=== PATIENT | female | born 1960 | race Caucasian/White ===

== ENCOUNTER 2017-01-17 10:53 | Inpatient (IN) | payer OTHER ==
[~2017-01-17] VITALS: Ht 162.6 cm; Wt 113.6 kg
[~2017-01-17 10:53] MED LIST: GABA300C5 PO; HYDR-3516 PO
[2017-01-17] MEDS ORDERED: METOPROLOL TARTRATE 25 MG TAB PO PRN (11:45)
[2017-01-17] MEDS ORDERED: LACTATED RINGER'S 1000 ML IV PRN (11:45)
[2017-01-17] MEDS ORDERED: CHLORHEXIDINE GLUCONATE 2 % 1 PACK (2 CLOTHS) TOPICAL PRN (11:45)
[2017-01-17] MEDS ORDERED: POVIDONE IODINE 5% (ANTISEPSIS KIT) 4 APPLICATIONS EACH NARE PRN (11:45)
[2017-01-17] MEDS ORDERED: LACTATED RINGER'S 1000 ML INJ 1,000 ML IV SCH (11:45)
[2017-01-17] MEDS ORDERED: SODIUM CHLORID 0.9% 500 ML IV PRN (11:45)
[2017-01-17 12:16] LABS: BLOOD, URINE NEG (NEG); GLUCOSE,URINE NEG (NEG); KETONE, URINE NEG (NEG); NITRITE,URINE NEG (NEG); URINE COLOR LIGHT-YELLOW (YELLW/STRAW)
[2017-01-17 12:17] LABS: COMMENT (UR) CATH-CULT NOT IND; CULTURE IF INDICATED CATH CULTURE NOT IND
[2017-01-17] MEDS ORDERED: GELFOAM SIZE 100 ONE (12:33)
[2017-01-17] MEDS ORDERED: LIDOCAINE 1%/EPINEPHrine 1:100,000 SOLN 50 ML VIAL ONE (12:33)
[2017-01-17] MEDS ORDERED: THROMBIN (TOPICAL) 5,000 UNIT VIAL ONE (12:33)
[2017-01-17] MEDS ORDERED: GENTAMICIN SULFATE 80 MG/2 ML VIAL ONE (12:34)
[2017-01-17] MEDS: ceFAZolin 1,000 MG/NS 100 ML IV SCH ×4 (16:10→17:35)
--- NOTE | 2017-01-17 16:30 | RADRPT ---
EXAM DATE/TIME: 01/17/2017 14:38 [facility] COMPARISON: No previous studies available for comparison. INDICATIONS : Radiculopathy RADIATION DOSE: 35.78 CTDIvol (mGy) ; Combined studies - Thoracic Spine/Lumbar Spine MEDICAL HISTORY : Hypertension. SURGICAL HISTORY : lumbar ENCOUNTER: Initial ACUITY: 1 day PAIN SCALE: 5/10 LOCATION: low back pain TECHNIQUE: Volumetric scanning of the thoracic spine was performed. Multiplanar reconstructions in the sagittal , coronal and oblique axial planes were performed. Using automated exposure control and adjustment o f the mA and/or kV according to patient size, radiation dose was kept as low as reasonably achievable to obtain optimal diagnostic quality images. DICOM format image data is available electronically f or review and comparison. FINDINGS: There are 12 rib-bearing vertebral bodies. The vertebral bodies of the thoracic spine are in normal a lignment without evidence of subluxation. Mild anterior wedging of the T11 superior endplate anteriorly and to a lesser ET 10. No cortical or t rabecular irregularity to suggest acute fractures. There is diffuse mild disc space narrowing with an terior osteophytes. No posterior osteophytes. T1-T2: Normal. T2-T3: The thecal sac has a normal diameter. No evidence of disc bulge or protrusion. T3-T4: The thecal sac has a normal diameter. No evidence of disc bulge or protrusion. T4-T5: The thecal sac has a normal diameter. No evidence of disc bulge or protrusion. T5-T6: The thecal sac has a normal diameter. No evidence of disc bulge or protrusion. T6-T7: The thecal sac has a normal diameter. No evidence of disc bulge or protrusion. T7-T8: The thecal sac has a normal diameter. No evidence of disc bulge or protrusion. T8-T9: The thecal sac has a normal diameter. No evidence of disc bulge or protrusion. T9-T10: The thecal sac has a normal diameter. No evidence of disc bulge or protrusion. T10-T11: The thecal sac has a normal diameter. No evidence of disc bulge or protrusion. T11-T12: The thecal sac has a normal diameter. No evidence of disc bulge or protrusion. T12-L1: The thecal sac has a normal diameter. No evidence of disc bulge or protrusion. CONCLUSION: 1. 12 rib-bearing thoracic vertebral bodies. 2. Diffuse disc space narrowing with anterior osteophyte production. Central canal is patent througho ut Juan Herrera Jr., MD on January 17, 2017 at 16:23 Board Certified Radiologist. This report was verified electronically.
--- NOTE | 2017-01-17 16:35 | RADRPT ---
EXAM DATE/TIME: 01/17/2017 14:38 [facility] COMPARISON: CT THORACIC SPINE W/O CONTRAST, January 17, 2017, 14:38. INDICATIONS : Radiculopahy RADIATION DOSE: 35.92 CTDIvol (mGy) ; Combined studies - Thoracic Spine/Lumbar Spine MEDICAL HISTORY : Hypertension. SURGICAL HISTORY : lumbar ENCOUNTER: Initial ACUITY: 1 day PAIN SCALE: 5/10 LOCATION: low back pain TECHNIQUE: Volumetric scanning of the lumbar spine was performed. Multiplanar reconstructions in the sagittal, coronal and oblique axial planes were performed. Using automated exposure control and adjustment of the mA and/or kV according to patient size, radiation dose was kept as low as reasonably achievable t o obtain optimal diagnostic quality images. DICOM format image data is available electronically for review and comparison. FINDINGS: VERTEBRAE: Please note, there appears to be sacralization of the L5 vertebral body as the entire thoracic spine is also included and shows 12 thoracic type rib vertebral bodies. There are 4 non-rib lumbar-type akash tebral bodies with probable complete sacralization of L5. Numbering reflects this configuration. ALIGNMENT: Dextroscoliosis of the lumbar spine. T12-L1: The thecal sac has a normal diameter. No evidence of disc bulge or protrusion. The neural foramina are patent bilaterally. L1-L2: The thecal sac has a normal diameter. No evidence of disc bulge or protrusion. The neural foramina are patent bilaterally. L2-L3: The thecal sac has a normal diameter. No evidence of disc bulge or protrusion. The neural foramina are patent bilaterally. L3-L4: The thecal sac has a normal diameter. No evidence of disc bulge or protrusion. The neural foramina are patent bilaterally. L4-L5: Facet hypertrophy rightward narrows the right neural foramina and probably compromises the right L4 n erve root. Minimal central spinal stenosis. Some encroachment on the left neural foramina bilaterally the left foramina is adequate. Please note, on the axial images, the configuration is more consisten t with the lumbosacral junction characteristic of complete sacralization of the L5 vertebrae. L5-S1: The thecal sac has a normal diameter. No evidence of disc bulge or protrusion. The neural foramina are patent bilaterally. CONCLUSION: 1. 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 Numb ering protocol reflects this configuration. 2. Dextroscoliosis of the lumbar spine with associated mild degenerative disc disease. 3. Facet hypertrophy rightward at L4-5 no right neural foramina minimal certainly compromises the rig ht L4 nerve root. Minimal encroachment on the left neural foramina and spinal canal at the same level but I do not believe there is central nerve root compromise. Left L4 nerve root appears to escapes c ompression as well. 4. Spinal canal and neural foramina are adequate at all remaining levels. Aba Dahl MD on January 17, 2017 at 16:24 Board Certified Radiologist. This report was verified electronically.
[2017-01-17] MEDS ORDERED: PROPOFOL 500 MG/50 ML INJ 100 ML ONE ×2 (19:15→21:24)
[2017-01-17] MEDS ORDERED: fentaNYL CITRATE 1000 MCG/20 ML VIAL ONE (21:24)
[2017-01-17] MEDS ORDERED: 1/2 NS + KCL 20 MEQ INJ 1,000 ML IV SCH (22:28)
[2017-01-17] MEDS ORDERED: ONDANSETRON HCL 4 MG/2 ML VIAL IV PUSH PRN (22:30)
[2017-01-17] MEDS ORDERED: MORPHINE SULFATE 4 MG/ML INJ IV PUSH PRN (22:30)
[2017-01-17] MEDS ORDERED: HYDROmorphone HCL PF 1 MG/ML VIAL IV PUSH PRN ×2 (22:30)
[2017-01-17] MEDS ORDERED: ACETAMINOPHEN/HYDROcodone 325 MG/5 MG TAB PO PRN (22:30)
[2017-01-17] MEDS ORDERED: ACETAMINOPHEN/HYDROcodone 325 MG/10 MG TAB PO PRN (22:30)
[2017-01-17] MEDS ORDERED: NALOXONE HCL 0.4 MG/ML AMP IV PUSH PRN ×2 (22:30)
[2017-01-17] MEDS ORDERED: SODIUM CHLORIDE 0.9% FLUSH 5 ML FLUSH IVF PRN (22:30)
--- NOTE | 2017-01-17 22:34 | RADRPT ---
EXAM DATE/TIME: 01/17/2017 17:25 [facility] COMPARISON: CT LUMBAR SPINE W/O CONTRAST, January 17, 2017, 14:38. INDICATIONS : Radiculopathy. MEDICAL HISTORY : Hypertension. SURGICAL HISTORY : Lumbar spine ENCOUNTER: Initial ACUITY: 1 day PAIN SCORE: Non-responsive. LOCATION: Lumbar spine FINDINGS: A single lateral view of the lumbar spine was performed. There is a surgical probe are to coarse jazzy n last normal height disc space. Compared to the CT examination, this was labeled L4-L5. There appear s to be a small disc at what was labeled L5-S1. CONCLUSION: Surgical localization with a protracted course the last normal height disc space. Romie Mcgregor MD on January 17, 2017 at 22:31 Board Certified Radiologist. This report was verified electronically.
--- NOTE | 2017-01-17 22:35 | PD.OP ---
Operative Report Date of Surgery: Jan 17, 2017 Preoperative Diagnosis: (1) Lumbar radiculopathy (2) Lumbar canal stenosis (3) Herniated nucleus pulposus, lumbar 1. Right L4 and L5 radiculopathy 2. Right L4-5 transitional stenosis 3. Right L4-L5 transitional foraminal and extraforaminal disc displacement with foraminal stenosis. Postoperative Diagnosis: (1) Lumbar radiculopathy (2) Lumbar canal stenosis (3) Herniated nucleus pulposus, lumbar 1. Right L4 and L5 radiculopathy 2. Right L4-5 transitional stenosis 3. Right L4-L5 transitional foraminal and extraforaminal disc displacement with foraminal stenosis. Procedure: Procedure #1: Right L4-L5 transitional lateral approach for extraforaminal discectomy and L4 5 foraminotomy. Technique Procedure #2: Via separate incision. Right L4 5 transitional decompressive semi-laminectomy, medial facetectomy- microtechnique Anesthesia: Gen. Surgeon: Dl Gonzalez Pastry Finisher(s): Julio Ramos Operation and Findings: Indications: 36-year-old female with progressive severe anterolateral right thigh and calf pain primarily L4 and L5 distribution. Preoperative imaging study reveals L4-L5 transitional severe lateral recess stenosis and foraminal stenosis with extraforaminal disc displacement. Patient desired to avoid fusion if possible. Procedure in detail: The patient was brought into the operating room and general endotracheal anesthesia induced without difficulty. ISA hose and sequential compression devices were placed. The Sidhu catheter was placed. Lines were established by anesthesia. Leads for intraoperative neuro monitoring were placed and a baseline study obtained. The patient was positioned on the concentric Daniel table with the side bolsters and all extremities appropriately padded. Appropriate time-out procedure was performed with all personnel present and in agreement. Procedure #1: 1% Xylocaine with epinephrine was used for local infiltration over the incision site which was made proximally 7 cm lateral to the midline at the right L4-L5 transitional level. The incision was carried sharply down to the lumbodorsal fascia which was incised with the Bovie. Finger dissection was used to palpate the space bordered by the right L4 transverse process, the [id number]-[id number] ala and the medial iliac crest. The deep self-retaining retractor was placed. The microscope was brought into place and used for the remainder of the procedure including the closure. The intertransverse process musculature and ligament was elevated with the thing ligament dissector and resected with the Kerrison rongeur. The thin ligament dissectors, blunt nerve hooks, and Benson 4 dissector were used as needed to palpate the inferior L4 and superior L5-transitional pedicle on the right side. The straight and curved 2 mm Kerrison rongeurs were used to perform the right L4 -L5 transitional foraminotomy. The lateral aspect of the thecal sac was visualized along with the exiting right L4 nerve root which was traced as it exited obliquely across the extraforaminal annulus. The extraforaminal right L4 nerve root was gently freed up from the underlying annulus and retracted cephalad gently to reveal the right L4-L5 transitional extraforaminal annulus which was noted to be moderately bulging and displacing the nerve root. In order to avoid excessive disc removal and destabilization of the disc segment , a small incision was made in the extraforaminal annulus and the small nerve hooks and micropituitary biopsy forceps were used to decompress the subannular disc herniation. The annulus was cauterized with the bipolar to further shrink down the bulging disc and annulus. The exiting L4 nerve root was carefully traced across the annulus towards the foramen to the junction with the thecal sac and was felt to be well decompressed. No cerebrospinal fluid leakage was encountered. Bleeding was carefully controlled with the bipolar forceps The closure was performed with 0 Vicryl interrupted for the deep and superficial fascia, with 3-0 Vicryl interrupted subcutaneous closure, and 4-0 Vicryl running subcuticular closure. Procedure #2: Procedure in detail: 1% Xylocaine with epinephrine was used for local infiltration over the incision site which was made just to the right of midline at the L4-L5 transitional level. The incision was carried sharply down to the lumbodorsal fascia which was incised adjacent to the spinous processes. Arce elevator was used for subperiosteal elevation of paraspinous musculature and fascia away from the lamina and spinous process. The deep self-retaining retractor was placed. The appropriate levels were verified with intraoperative C-arm. Microscope was moved into place and used for the remainder of the procedure including the closure. The TPS drill with a 5 mm bone bur followed by the 4 mm hallie bur was used to remove the inferior two thirds of the right L4 lamina and the superior aspect of the right L5-transitional lamina along with a moderate amount of the bilateral medial facet, taking care not to disrupt the integrity of the facet or pars interarticularis. The hypertrophied ligamentum flavum was elevated away from the thecal sac with the thin ligament dissector and resected with the 15 blade knife and the Kerrison rongeur out to the level of the deep lateral recess to completely decompress the thecal sac and exiting nerve roots. The right L5 nerve root was located at the medial aspect of the L5 transitional pedicle on the right side and traced back to the thecal sac. The deep aspect of the superior medial right L5-transitional facet was removed to decompress the L5 nerve for her was rather severely compressed by the overlying facet. The nerve roots and thecal sac appeared well decompressed at the end of the procedure. No spinal fluid leakage was encountered. Bleeding was carefully controlled with the bipolar forceps. The closure was performed with 0 Vicryl interrupted for the deep and superficial fascia, with 3-0 Vicryl interrupted subcutaneous closure, and 4-0 Vicryl running subcuticular closure. A dressing of sterile Mastisol, Steri-Strips, and Primapore was placed. The patient was taken to recovery room in stable condition. All counts were correct at the end of the case. Estimated blood loss was 200 cc. No specimen was sent to pathology Dl Gonzalez MD Jan 17, 2017 22:35
[2017-01-17] MEDS ORDERED: PROMETHAZINE INJ 25 MG/ML VIAL ONE (22:53)
[2017-01-17] MEDS ORDERED: DO NOT ADM ANY ANTICOAGULANT DRUGS PRN (23:00)
[2017-01-17] MEDS ORDERED: *MEPERIDINE 25 MG INJ VIAL PERIprocedural Use ONLY ONE (23:20)
[2017-01-17] MEDS ORDERED: PROMETHAZINE INJ 25 MG/ML VIAL IM PRN (23:45)
[2017-01-18 00:20] VITALS: BP 138/70; PULSE 80; RESP 16; TEMP 97; O2SAT 99
[2017-01-18 04:00] VITALS: BP 123/83; PULSE 79; RESP 17; TEMP 96.8; O2SAT 97
[2017-01-18 06:59] LABS: AUTOMATED NEUTROPHIL # 14.8 TH/MM3 (1.8-7.7); BASOPHIL % 0.1 % (0.0-2.0); HEMATOCRIT 40.8 % (35.0-46.0); HEMO FLAGS DIFF FINAL; LYMPH % 4.1 % (9.0-44.0); LYMPHOCYTE # 0.7 TH/MM3 (1.0-4.8); MEAN CELL VOLUME 90.1 FL (80.0-100.0); MEAN CORPUSCULAR HEMOGLOBIN 30.2 PG (27.0-34.0); MEAN CORPUSCULAR HGB CONC 33.6 % (32.0-36.0); MONO % 2.2 % (0.0-8.0); NEUT % 93.6 % (16.0-70.0); PLATELET COUNT 268 TH/MM3 (150-450); RED BLOOD COUNT 4.53 MIL/MM3 (4.00-5.30); RED CELL DISTRIBUTION WIDTH 13.5 % (11.6-17.2); WHITE BLOOD COUNT 15.8 TH/MM3 (4.0-11.0)
[2017-01-18 07:02] LABS: BICARBONATE 25.6 MEQ/L (21.0-32.0); POTASSIUM 4.1 MEQ/L (3.5-5.1)
[2017-01-18 08:00] VITALS: BP 95/54; PULSE 64; RESP 17; TEMP 97.7; O2SAT 98
--- NOTE | 2017-01-18 08:53 | HHI.FF ---
Face to Face Verification Diagnosis: (1) Lumbar canal stenosis (2) Herniated nucleus pulposus, lumbar (3) Lumbar radiculopathy Physical Therapy Order: Evaluate and Treat Home Health Nursing Order: Wound care and dressing changes Instructions: Change dressing to lumbar surgical incision every 3 days with a Primafore dressing for a total of 3 dressing changes. Steri-strips to stay on and let fall off on own. May shower once incision is completely healed. I have seen patient Dary Vallejo on 01/18/17. My clinical findings support the need for the requested home health care services because: Deconditioned w/ increased weakness I certify that my clinical findings support that this patient is homebound because: Unsteady gait/balance Jun Arita [facility] Jan 18, 2017 08:53
[2017-01-18] MEDS ORDERED: HYDR-3583 PO (08:56)
--- NOTE | 2017-01-18 08:58 | HHI.NSPN ---
History Chief Complaint: Back pain with movement Interval History 01/17: The patient presented to [facility] to have a right L4-5 transitional lateral extraforaminal discetomy, foraminotomy and semi- laminectomy. Post-operatively she was admitted to a regular med/surg floor for further care. 01/18: The patient is seen in rounds with Dr Gonzalez this morning. She states that her back is not sore but she does have pain when she moves. The pain to her buttock is better and she has no numbness to the feet. She does endorse numbness to both hands. The undersigned acts as a scribe for the remainder of this note. Exam Results 01/16/17 01/16/17 01/17/17 01/17/17 01/18/17 01/18/17 06:00 18:00 06:00 18:00 06:00 18:00 Intake Total 4700 ml Output Total 3550 ml Balance 1150 ml Intake Oral 0 ml IV Total 300 ml Other 4400 ml Output Urine Total 3000 ml Emesis 350 ml Estimated Blood Loss 200 ml Vital Signs Date Time Temp Pulse Resp B/P (MAP) Pulse Ox O2 Delivery O2 Flow Rate FiO2 01/18/17 08:00 97.7 64 17 95/54 (68) 98 01/18/17 04:00 96.8 79 17 123/83 (96) 97 01/18/17 00:20 97.0 80 16 138/70 (92) 99 01/18/17 00:00 97.5 73 13 131/76 (94) 94 Nasal Cannula 3 01/17/17 23:45 75 15 133/77 (95) 98 Nasal Cannula 3 01/17/17 23:30 102 24 173/97 (122) 97 Nasal Cannula 2 01/17/17 23:15 80 20 145/77 (99) 97 Nasal Cannula 2 01/17/17 23:00 75 16 138/74 (95) 96 Nasal Cannula 2 01/17/17 22:45 79 15 138/84 (102) 100 Nasal Cannula 3 01/17/17 22:30 77 11 132/78 (96) 99 Nasal Cannula 3 153/79 (103) 01/17/17 22:24 97.6 79 12 131/76 (94) 100 Nasal Cannula 3 01/17/17 12:22 98.2 66 20 177/97 (123) 100 Physical Examination SKIN: Dry & intact dressing to lumbar surgical incision. MUSCULOSKELETAL: ABRAMS w/o difficulty. Lumbar surgical incisions mildly TTP. NEUROLOGICAL: AAOx3. Speech clear & appropriate. Follows simple commands w/o difficulty. Sensation intact to light touch to lower extremities. Motor strength is 5/5 to all major flexion & extension muscle groups except that the right tibialis anterior is 2/5 and the right iliopsoas is 4/5 chronically. Lab, Micro, Other Results Recent Impressions Thoracic Spine CT 01/17/17 0000 Signed Impressions: Service Date/Time: January 14:38 - CONCLUSION: 1. 12 rib-bearing thoracic vertebral bodies. 2. Diffuse disc space narrowing with anterior osteophyte production. Central canal is patent throughout Juan Herrera Jr., MD Lumbar Spine X-Ray 01/17/17 0000 Signed Impressions: Service Date/Time: January 17:25 - CONCLUSION: Surgical localization with a protracted course the last normal height disc space. Romie Mcgregor MD Lumbar Spine CT 01/17/17 0000 Signed Impressions: Service Date/Time: January 14:38 - CONCLUSION: 1. 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 Numbering protocol reflects this configuration. 2. Dextroscoliosis of the lumbar spine with associated mild degenerative disc disease. 3. Facet hypertrophy rightward at L4-5 no right neural foramina minimal certainly compromises the right L4 nerve root. Minimal encroachment on the left neural foramina and spinal canal at the same level but I do not believe there is central nerve root compromise. Left L4 nerve root appears to escapes compression as well. 4. Spinal canal and neural foramina are adequate at all remaining levels. Aba Dahl MD Laboratory Tests Test 01/17/17 11:50 01/18/17 05:53 Urine Color LIGHT-YELLOW Urine Turbidity CLEAR Urine pH 5.0 Urine Specific [place] 1.015 Urine Protein NEG mg/dL Urine Glucose (UA) NEG mg/dL Urine Ketones NEG mg/dL Urine Occult Blood NEG Urine Nitrite NEG Urine Bilirubin NEG Urine Urobilinogen LESS THAN 2.0 MG/DL Urine Leukocyte Esterase NEG Microscopic Urinalysis Comment CATH-CULT NOT IND White Blood Count 15.8 TH/MM3 Red Blood Count 4.53 MIL/MM3 Hemoglobin 13.7 GM/DL Hematocrit 40.8 % Mean Corpuscular Volume 90.1 FL Mean Corpuscular Hemoglobin 30.2 PG Mean Corpuscular Hemoglobin Concent 33.6 % Red Cell Distribution Width 13.5 % Platelet Count 268 TH/MM3 Mean Platelet Volume 8.8 FL Neutrophils (%) (Auto) 93.6 % Lymphocytes (%) (Auto) 4.1 % Monocytes (%) (Auto) 2.2 % Eosinophils (%) (Auto) 0.0 % Basophils (%) (Auto) 0.1 % Neutrophils # (Auto) 14.8 TH/MM3 Lymphocytes # (Auto) 0.7 TH/MM3 Monocytes # (Auto) 0.3 TH/MM3 Eosinophils # (Auto) 0.0 TH/MM3 Basophils # (Auto) 0.0 TH/MM3 CBC Comment DIFF FINAL Differential Comment Blood Urea Nitrogen 10 MG/DL Creatinine 0.79 MG/DL Random Glucose 169 MG/DL Calcium Level 8.1 MG/DL Sodium Level 141 MEQ/L Potassium Level 4.1 MEQ/L Chloride Level 110 MEQ/L Carbon Dioxide Level 25.6 MEQ/L Anion Gap 5 MEQ/L Estimat Glomerular Filtration Rate 75 ML/MIN Medical Decision Making Impression and Plan Postoperative Diagnosis: (1) Lumbar radiculopathy (2) Lumbar canal stenosis (3) Herniated nucleus pulposus, lumbar 1. Right L4 and L5 radiculopathy 2. Right L4-5 transitional stenosis 3. Right L4-L5 transitional foraminal and extraforaminal disc displacement with foraminal stenosis. Labs reviewed for today. POD #1 () s/p: Procedure #1: Right L4-L5 transitional lateral approach for extraforaminal discectomy and L4 5 foraminotomy. Technique Procedure #2: Via separate incision. Right L4 5 transitional decompressive semi-laminectomy, medial facetectomy- microtechnique Plan: Discussed plan of care, to include discharge instructions, with the patient & Nursing. D/C Sidhu. D/C IVF. Advance diet. Mobilise patient w/assistance as needed. PT eval & tx. Home Health Care consult. Will discharge home this afternoon. Jun Arita Jan 18, 2017 08:58
[2017-01-18] MEDS ORDERED: GABAPENTIN 300 MG CAP PO SCH (09:00)
[2017-01-18] MEDS ORDERED: DOCUSATE SODIUM 100 MG CAP PO SCH (09:00)
[2017-01-18] MEDS ORDERED: PANTOPRAZOLE SOD 40 MG DELAYED RELEASE TAB PO SCH (09:00)
[2017-01-18] MEDS ORDERED: SODIUM CHLORIDE 0.9% FLUSH 5 ML FLUSH IVF SCH (09:00)
--- NOTE | 2017-01-18 09:01 | HHI.DS ---
Discharge Summary Admission Date Jan 17, 2017 at 10:53 Discharge Date: Jan 18, 2017 Admitting Diagnosis Lumbar stenosis Lumbar radiculopathy Lumbar disc herniation (1) Lumbar canal stenosis Diagnosis: Secondary ICD Code: M48.061 - Spinal stenosis, lumbar region without neurogenic claudication (2) Herniated nucleus pulposus, lumbar Diagnosis: Secondary ICD Code: M51.26 - Other intervertebral disc displacement, lumbar region (3) Lumbar radiculopathy Diagnosis: Principal ICD Code: M54.16 - Radiculopathy, lumbar region Procedures Date of Surgery: Jan 17, 2017 Preoperative Diagnosis: (1) Lumbar radiculopathy (2) Lumbar canal stenosis (3) Herniated nucleus pulposus, lumbar 1. Right L4 and L5 radiculopathy 2. Right L4-5 transitional stenosis 3. Right L4-L5 transitional foraminal and extraforaminal disc displacement with foraminal stenosis. Postoperative Diagnosis: (1) Lumbar radiculopathy (2) Lumbar canal stenosis (3) Herniated nucleus pulposus, lumbar 1. Right L4 and L5 radiculopathy 2. Right L4-5 transitional stenosis 3. Right L4-L5 transitional foraminal and extraforaminal disc displacement with foraminal stenosis. Procedure: Procedure #1: Right L4-L5 transitional lateral approach for extraforaminal discectomy and L4 5 foraminotomy. CBC/BMP: 01/18/17 0553 01/18/17 0553 Significant Findings Laboratory Tests Test 01/17/17 11:50 01/18/17 05:53 White Blood Count 15.8 TH/MM3 (4.0-11.0) Neutrophils (%) (Auto) 93.6 % (16.0-70.0) Lymphocytes (%) (Auto) 4.1 % (9.0-44.0) Neutrophils # (Auto) 14.8 TH/MM3 (1.8-7.7) Lymphocytes # (Auto) 0.7 TH/MM3 (1.0-4.8) Random Glucose 169 MG/DL (74-106) Calcium Level 8.1 MG/DL (8.5-10.1) Chloride Level 110 MEQ/L (98-107) Estimat Glomerular Filtration Rate 75 ML/MIN (>89) Hospital Course Patient admitted for the above noted procedure performed without complication. Postop day #1 vital signs stable, laboratory results satisfactory. Tolerating diet. Stable neurologic exam postoperative day 1. Pain adequately controlled with oral medications Stable for discharge postop day #1. Instructions given for activity, wound care. Home health care for nursing and physical therapy. Pt Condition on Discharge: Good Discharge Disposition: Disch w/ Home Health Serv Discharge Instructions DIET: Follow Instructions for: As Tolerated, No Restrictions ACTIVITIES You can perform: Weight Bearing As Kym Activities to Avoid: Lifting/Bending, Strenuous Activity New Medications: Hydrocodone/Acetaminophen (Hydrocodone-Acetamin 10-325 mg) 10 Mg-325 Mg Tablet 1 TAB PO Q4H PRN for PAIN SCALE 6 TO 10, #90 TAB 0 Refills Continued Medications: Gabapentin (Gabapentin) 300 Mg Cap 300 MG PO TID for Pain Management, #90 CAP 1 Refill Hydrocodone-Acetaminophen (Hydrocodone-Acetaminophen) 5-325 mg Tab 1-2 TAB PO Q4-6H PRN for PAIN, TAB 0 Refills Dl Gonzalez MD Jan 18, 2017 09:01
[2017-01-18 10:18] VITALS: O2SAT 98
[2017-01-18 11:25] VITALS: RESP 16
[2017-01-18] MEDS ORDERED: COMMODE 3-IN-11 MIS (13:35)
== END 2017-01-18 14:24 | disposition home health service (06) | DRG 519 ==
LOC: HSDI 10:53 → N06B 01-18 00:21
PROVIDERS: ADMIT Neurological Surgery; ATTEND Neurological Surgery
PROC: 01NB0ZZ Release Lumbar Nerve, Open Approach (ICD-10-PCS; 2017-01-17)
PROC: 0SB20ZZ Excision of Lumbar Vertebral Disc, Open Approach (ICD-10-PCS; principal; 2017-01-17 13:00)
DX: M51.16 Intervertebral disc disorders with radiculopathy, lumbar region (principal); Z68.41 Body mass index [BMI] 40.0-44.9, adult; I10 Essential (primary) hypertension; M48.061 Spinal stenosis, lumbar region without neurogenic claudication; E78.5 Hyperlipidemia, unspecified; K58.9 Irritable bowel syndrome, unspecified; E66.9 Obesity, unspecified; Z87.891 Personal history of nicotine dependence
CPT/HCPCS: 72020; 72128; 72131; 76000; 80048; 81001; 85025; 86850; 86900; 86901; 94150; J0690; J1580; J2175; J2270; J2405; J2550; J3010; J7120